=== PATIENT | male | born 1980 | race Two or more races ===

== ENCOUNTER 2023-01-29 11:38 | Emergency (ER) | payer OTHER ==
[~2023-01-29] VITALS: Ht 182.9 cm; Wt 113.4 kg
[2023-01-29] MEDS ORDERED: CRESTOR10 MG PO (11:44)
[2023-01-29] MEDS ORDERED: COZAAR25 MG PO (11:44)
[2023-01-29 13:01] LABS: HEMATOCRIT 46.9 % (39.0-48.0); HEMOGLOBIN 15.7 g/dL (13-16.00); MEAN CELL VOLUME 80.1 fL (80.0-100.00); MEAN CORPUSCULAR HEMOGLOBIN 26.8 pg (27.00-32.0); MEAN CORPUSCULAR HGB CONC 33.4 g/dl (32.0-36.0); PLATELET COUNT 255 K/uL (150-450); RED BLOOD COUNT 5.86 M/uL (4.00-6.00); RED CELL DISTRIBUTION WIDTH 14.1 % (11.5-14.5)
[2023-01-29] MEDS ORDERED: GENTAMICIN SULFA5 ML OP (14:02)
== END 2023-01-29 14:18 | disposition home or self-care (01) ==
LOC: ER 11:39
PROVIDERS: Emergency Medicine
DX: B34.9 Viral infection, unspecified (principal); B30.1 Conjunctivitis due to adenovirus; Z20.822 Contact with and (suspected) exposure to COVID-19